=== PATIENT | female | born 1980 | race Caucasian/White ===

== ENCOUNTER 2019-07-08 13:20 | Emergency (ER) | payer OTHER ==
[~2019-07-08] VITALS: Ht 175.3 cm; Wt 108.9 kg
[2019-07-08 13:25] VITALS: BP 154/98
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
[2019-07-08] MEDS ORDERED: ACETAMINOPHEN EXTRA STRENGTH 500 MG TAB PO ONE (14:20)
--- NOTE | 2019-07-08 14:37 | NUR ---
PT WHEELCHAIRED TO RESTROOM WITH ASSISTANCE
--- NOTE | 2019-07-08 15:00 | NUR ---
PT BEING TAKEN TO CT VIA WHEELCHAIR
--- NOTE | 2019-07-08 15:15 | NUR ---
PT RETURNED FROM CT
--- NOTE | 2019-07-08 16:50 | NUR ---
APPLIED WENCESLAO WRAP TO RIGHT ANKLE WITHOUT ANY ISSUES
[2019-07-08 16:53] VITALS: BP 148/91
--- NOTE | 2019-07-08 16:53 | NUR ---
Patient discharged with v/s stable. Written and verbal after care instructions given and explained. Patient alert, oriented and verbalized understanding of instructions. Wheel Chair Assisted with to car. All questions addressed prior to discharge. ID band removed. Patient advised to follow up with PMD. Rx of ACETAMINOPHEN given. Patient educated on indication of medication including possible reaction and side effects. Opportunity to ask questions provided and answered.
== END 2019-07-08 16:53 | disposition home or self-care (01) ==
LOC: MED 13:20
DX: S83.91XA Sprain of unspecified site of right knee, initial encounter (principal); S70.12XA Contusion of left thigh, initial encounter; S06.0X0A Concussion without loss of consciousness, initial encounter; S00.01XA Abrasion of scalp, initial encounter; S30.810A Abrasion of lower back and pelvis, initial encounter; J45.909 Unspecified asthma, uncomplicated; I10 Essential (primary) hypertension; Z98.890 Other specified postprocedural states; Z88.2 Allergy status to sulfonamides; Z88.5 Allergy status to narcotic agent; Z88.1 Allergy status to other antibiotic agents; V49.9XXA Car occupant (driver) (passenger) injured in unspecified traffic accident, initial encounter; Y93.89 Activity, other specified; Y92.410 Unspecified street and highway as the place of occurrence of the external cause; Y99.8 Other external cause status
CPT/HCPCS: 70450; 73610; 81002; 90471; 90715; 99284; Q0092